=== PATIENT | female | born 1985 | race Caucasian/White ===

== ENCOUNTER 2016-07-25 16:48 | Emergency (ER) | payer MEDICAID ==
[2016-07-25] MEDS ORDERED: NS 1,000 ML IV ONE ×2 (16:55→18:38)
[2016-07-25] MEDS ORDERED: HYDROmorphONE/DILAUDID 1 MG/ML SYR IVP ONE ×2 (16:55→18:56)
[2016-07-25 17:04] VITALS: RESP 14; TEMP 98.4
[2016-07-25 17:12] LABS: % IMMATURE GRANULYOCYTES 0.2 % (0.0-1.1); ABSOLUTE IMMATURE GRANULOCYTES 0.01 10^3/uL (0.00-0.10); ADD DIFF? NO; ADD MORPH? NO; ADD SCAN? NO; ATYPICAL LYMPHOCYTE FLAG 10 (0-99); FRAGMENT RBC FLAG 0 (0-99); HEMATOCRIT 38.3 % (38.0-47.0); HEMOGLOBIN 13.3 g/dL (12.6-16.3); LEFT SHIFT FLG 0 (0-99); LIPEMIA HEMOLYSIS FLAG 90 (0-99); MEAN CELL HEMOGLOBIN 29.8 pg (27.9-34.1); MEAN CELL HEMOGLOBIN CONCENTR. 34.7 g/dL (32.4-36.7); MEAN CELL VOLUME 85.9 fL (81.5-99.8); MEAN PLATELET VOLUME 9.4 fL (8.7-11.7); PLATELET CLUMPS FLAG 0 (0-99); PLATELET COUNT 303 10^3/uL (150-400); RED BLOOD CELL COUNT 4.46 10^6/uL (4.18-5.33); RED CELL DISTRIBUTION WIDTH 11.9 % (11.5-15.2)
[2016-07-25 17:14] VITALS: O2SAT 96
[2016-07-25 17:40] LABS: ANION GAP 11 mEq/L (8-16); CALCIUM 9.6 mg/dL (8.5-10.4); CARBON DIOXIDE 20 mEq/l (22-31); CHLORIDE 105 mEq/L (97-110); CREATININE 1.1 mg/dL (0.6-1.0); GLOMERULAR FILTRATION RATE 58; GLUCOSE 81 mg/dL (70-100); SODIUM 136 mEq/L (134-144)
[2016-07-25] MEDS ORDERED: IOPAMIDOL (ISOVUE-300) 100 ML BTL ONE (17:46)
[2016-07-25] MEDS ORDERED: PROMETHAZINE HCL 25 MG/ML INJ ONE (18:24)
[2016-07-25] MEDS ORDERED: PROMETHAZINE HCL 25 MG/ML INJ IVP ONE (18:25)
--- NOTE | 2016-07-25 18:33 | EDPHY ---
H & P Stated Complaint: Flank Pain HPI/ROS: Chief complaint: Left flank pain History of present illness: This is a 31-year-old female who presents to the emergency department for left flank pain. Patient reports the onset of pain this evening. She describes persistent pain with nausea and vomiting. She denies precipitating factors. She denies alleviating factors. She denies other associated signs or symptoms including no fevers, no dysuria he, hematuria , frequency or urgency, no diarrhea or constipation. Patient does have a history of kidney stones and other urologic problems that she reports ultimately resulted in a right nephrectomy at the [facility] remotely. However she has not followed up with them recently. She is concerned this could be secondary to a kidney stone. However she also reports a history of ovarian cyst and is concerned this could be secondary to an ovarian cyst. Review of systems: A 10 point review of systems was obtained and other than described above was negative - Personal History Current Tetanus/Diphtheria Vaccine: Yes Current Tetanus Diphtheria and Acellular Pertussis (TDAP): Yes - Medical/Surgical History Hx Asthma: No Hx Chronic Respiratory Disease: No Hx Diabetes: No Hx Cardiac Disease: No Hx Renal Disease: Yes Hx Cirrhosis: No Hx Alcoholism: No Hx HIV/AIDS: No Hx Splenectomy or Spleen Trauma: No Other PMH: nephrectomy, ovarian cysts, ptsd, anxiety - Social History Smoking Status: Never smoked - Physical Exam Exam: General Appearance: Alert, nontoxic. Eyes: Pupils equal and round no pallor or injection. ENT, Mouth: Mucous membranes moist. Respiratory: There are no retractions, lungs are clear to auscultation. Cardiovascular: Regular rate and rhythm. Gastrointestinal: Abdomen is soft and nontender, no masses, bowel sounds normal. Genitourinary: No CVA tenderness Neurological: Alert and oriented. Strength and sensation intact and symmetrical. Skin: Warm and dry, no rashes. Musculoskeletal: Neck is supple nontender. Extremities are symmetrical, full range of motion. Psychiatric: Patient is oriented X 3, there is no agitation. Constitutional: Initial Vital Signs Temperature (C) 36.9 C 07/25/16 17:02 Heart Rate 72 07/25/16 17:02 Respiratory Rate 14 07/25/16 17:02 Blood Pressure 124/85 H 07/25/16 17:02 O2 Sat (%) 93 07/25/16 17:02 O2 Delivery Mode Room Air O2 (L/minute) 2 Allergies/Adverse Reactions: azithromycin Allergy (Verified 07/25/16 17:02) morphine Allergy (Verified 07/25/16 17:02) ondansetron Allergy (Verified 07/25/16 17:02) Home Medications: Medication Instructions Recorded Hydroxyzine HCl 07/25/16 Propranolol HCl 07/25/16 oxyCODONE IR 07/25/16 Medical Decision Making - Diagnostics Imaging Results: Imaging Impressions Abdomen/Pelvis CT 07/25/16 17:43 Impression: 1. Status post right nephrectomy. The remaining left kidney is normal in appearance by CT examination, without obstruction. 2. Mild cystic fullness of the left ovary. Results called to Valeriy Brooks PA-C. Attention: This CT examination is specifically designed to evaluate patients who are clinically suspected of having acute obstructive uropathy. This examination does not use radiographic contrast, and as such, provides only a limited evaluation of the abdomen, pelvis and retroperitoneum. If there is further clinical suspicion for pathological conditions other than obstructive uropathy, a complete CT evaluation of the abdomen and pelvis utilizing intravenous, oral, and rectal contrast should be considered. Pelvic/Renal Ultrasound 07/25/16 18:35 Impression: 1. No evidence of left ovarian torsion. 2. Left ovarian 2.2- x 2.1- x 1.9-cm simple cyst or dominant follicle. 3. Prior right oophorectomy and hysterectomy. 4. No significant free fluid. Findings and recommendations discussed with Emergency Department physician, JAIME Mccormick, at 1938 hours, on July 25, 2016. Final report concurs with initial preliminary interpretation. ED Course/Re-evaluation: Patient is discussed with my secondary supervising physician Dr. Maral Hernandez. Patient presents to the emergency department for left flank pain. On presentation she is nontoxic. Afebrile and vital signs are stable. Blood studies show only trace elevation of creatinine, it is not clear what her baseline is. She is IV hydrated. Urinalysis is unremarkable. CT scan is negative for urologic findings. Pelvic ultrasound does show an ovarian cyst without complications such as torsion. Patient has been treated with pain medicine and antiemetics with improvement in symptoms. I believe patient is safe for discharge home. She is on chronic narcotics at home, she will need to follow up with her primary care doctor tomorrow to discuss adjusting these as needed for current pain. Toradol and other NSAIDs are NOT given, given her history of mildly elevated creatinine and right nephrectomy. She is asked to follow up with Urology for continued evaluation and care given this history. She has further been referred to OBGYN for recheck of her ovarian cyst. Home care is discussed. Return precautions are given. Differential Diagnosis: Included but not limited to cystitis, pyelonephritis, nephrolithiasis, diverticulitis, ovarian cyst, ovarian torsion - Data Points Laboratory Results: Laboratory Results 07/25/16 17:00 07/25/16 17:00 07/25/16 07/25/16 07/25/16 20:10 17:00 17:00 WBC RBC Hgb Hct MCV MCH MCHC RDW Plt Count MPV Neut % (Auto) Lymph % (Auto) [place] % (Auto) Eos % (Auto) Baso % (Auto) Nucleat RBC Rel Count Absolute Neuts (auto) Absolute Lymphs (auto) Absolute Monos (auto) Absolute Eos (auto) Absolute Basos (auto) Absolute Nucleated RBC Immature Gran % Immature Gran # Sodium 136 mEq/L mEq/L (134-144) Potassium 4.0 mEq/L mEq/L (3.5-5.2) Chloride 105 mEq/L mEq/L (97-110) Carbon Dioxide 20 mEq/l L mEq/l (22-31) Anion Gap 11 mEq/L mEq/L (8-16) BUN 14 mg/dL mg/dL (7-23) Creatinine 1.1 mg/dL H mg/dL (0.6-1.0) Estimated GFR 58 Glucose 81 mg/dL mg/dL (70-100) Calcium 9.6 mg/dL mg/dL (8.5-10.4) Beta HCG, Qual NEGATIVE Urine Color YELLOW Urine Appearance HAZY Urine pH 5.0 (5.0-7.5) Ur Specific [place] 1.013 (1.002-1.030) Urine Protein NEGATIVE (NEGATIVE) Urine Ketones NEGATIVE (NEGATIVE) Urine Blood NEGATIVE (NEGATIVE) Urine Nitrate NEGATIVE (NEGATIVE) Urine Bilirubin NEGATIVE (NEGATIVE) Urine Urobilinogen NEGATIVE EU EU (0.2-1.0) Ur Leukocyte Esterase NEGATIVE (NEGATIVE) Urine Glucose NEGATIVE (NEGATIVE) 07/25/16 17:00 WBC 5.32 10^3/uL 10^3/uL (3.80-9.50) RBC 4.46 10^6/uL 10^6/uL (4.18-5.33) Hgb 13.3 g/dL g/dL (12.6-16.3) Hct 38.3 % % (38.0-47.0) MCV 85.9 fL fL (81.5-99.8) MCH 29.8 pg pg (27.9-34.1) MCHC 34.7 g/dL g/dL (32.4-36.7) RDW 11.9 % % (11.5-15.2) Plt Count 303 10^3/uL 10^3/uL (150-400) MPV 9.4 fL fL (8.7-11.7) Neut % (Auto) 40.4 % % (39.3-74.2) Lymph % (Auto) 48.1 % H % (15.0-45.0) [place] % (Auto) 9.2 % % (4.5-13.0) Eos % (Auto) 1.3 % % (0.6-7.6) Baso % (Auto) 0.8 % % (0.3-1.7) Nucleat RBC Rel Count 0.0 % % (0.0-0.2) Absolute Neuts (auto) 2.15 10^3/uL 10^3/uL (1.70-6.50) Absolute Lymphs (auto) 2.56 10^3/uL 10^3/uL (1.00-3.00) Absolute Monos (auto) 0.49 10^3/uL 10^3/uL (0.30-0.80) Absolute Eos (auto) 0.07 10^3/uL 10^3/uL (0.03-0.40) Absolute Basos (auto) 0.04 10^3/uL 10^3/uL (0.02-0.10) Absolute Nucleated RBC 0.00 10^3/uL 10^3/uL (0-0.01) Immature Gran % 0.2 % % (0.0-1.1) Immature Gran # 0.01 10^3/uL 10^3/uL (0.00-0.10) Sodium Potassium Chloride Carbon Dioxide Anion Gap BUN Creatinine Estimated GFR Glucose Calcium Beta HCG, Qual Urine Color Urine Appearance Urine pH Ur Specific [place] Urine Protein Urine Ketones Urine Blood Urine Nitrate Urine Bilirubin Urine Urobilinogen Ur Leukocyte Esterase Urine Glucose Medications Given: Discontinued Medications Diphenhydramine HCl (Benadryl Injection) 25 mg IVP EDNOW ONE Stop: 07/25/16 20:11 Last Admin: 07/25/16 20:22 Dose: 25 mg Hydromorphone HCl (Dilaudid) 0.5 mg IVP EDNOW ONE Stop: 07/25/16 16:56 Last Admin: 07/25/16 17:12 Dose: 0.5 mg Hydromorphone HCl (Dilaudid) 0.5 mg IVP EDNOW ONE Stop: 07/25/16 18:57 Last Admin: 07/25/16 19:04 Dose: 0.5 mg Sodium Chloride (Ns) 1,000 mls @ 0 mls/hr IV ONCE ONE; Wide Open PRN Reason: Protocol Stop: 07/25/16 16:56 Last Admin: 07/25/16 17:12 Dose: 1,000 mls Sodium Chloride (Ns) 1,000 mls @ 0 mls/hr IV ONCE ONE; Wide Open PRN Reason: Protocol Stop: 07/25/16 18:39 Last Admin: 07/25/16 18:39 Dose: 1,000 mls Promethazine HCl (Phenergan) 12.5 mg IVP ONCE ONE Stop: 07/25/16 18:26 Last Admin: 07/25/16 18:28 Dose: 12.5 mg Promethazine HCl (Phenergan 25 Mg Prepack #4) 1 btl TAKEHOME EDNOW ONE Stop: 07/25/16 20:56 Last Admin: 07/25/16 21:00 Dose: 1 btl Departure - Departure Disposition: Home, Routine, Self-Care Clinical Impression: Ovarian cyst Condition: Good Instructions: Ovarian Cyst (ED) Additional Instructions: Please establish care with a primary care doctor as well as urologist an OBGYN, referral information is attached to this information packet Please have your creatinine recheck it was 1.1, mildly elevated today Drink plenty of fluids to stay hydrated If symptoms worsen or new symptoms develop return to the emergency room for recheck Referrals: Nita Blunt NP [Primary Care Provider] - As per Instructions Ned Steele MD [Unknown] - As per Instructions Wilfrido Catalan MD [Medical Doctor] - As per Instructions [facility],. [Clinic] - As per Instructions Stand Alone Forms: Work Excuse
[2016-07-25 20:24] LABS: COLOR YELLOW; LEUKOCYTE ESTERASE,URINE NEGATIVE (NEGATIVE); NITRITE,URINE NEGATIVE (NEGATIVE)
[2016-07-25 20:55] VITALS: BP 141/78; PULSE 80
[2016-07-25] MEDS ORDERED: PROMETHAZINE 25 MG PREPACK #4 BTL TAKEHOME ONE (20:55)
== END 2016-07-25 21:01 | disposition home or self-care (01) ==
LOC: EDUNIT#
DX: N83.202 Unspecified ovarian cyst, left side (principal)
CPT/HCPCS: J1170; J1200; J2550; Q9967

== ENCOUNTER 2016-07-27 12:49 | Inpatient (IN) | payer MEDICAID ==
[2016-07-27] MEDS ORDERED: NS 1,000 ML IV ONE ×3 (13:08→14:50)
[2016-07-27 13:19] LABS: COLOR YELLOW; LEUKOCYTE ESTERASE,URINE NEGATIVE (NEGATIVE); NITRITE,URINE NEGATIVE (NEGATIVE)
[2016-07-27] MEDS ORDERED: METOCLOPRAMIDE 10 MG/2 ML VIAL IVP ONE ×2 (13:23→15:56)
[2016-07-27 13:32] LABS: % IMMATURE GRANULYOCYTES 0.3 % (0.0-1.1); ABSOLUTE IMMATURE GRANULOCYTES 0.03 10^3/uL (0.00-0.10); ADD DIFF? NO; ADD MORPH? NO; ADD SCAN? NO; ATYPICAL LYMPHOCYTE FLAG 20 (0-99); FRAGMENT RBC FLAG 0 (0-99); HEMATOCRIT 43.9 % (38.0-47.0); HEMOGLOBIN 15.1 g/dL (12.6-16.3); LEFT SHIFT FLG 0 (0-99); LIPEMIA HEMOLYSIS FLAG 90 (0-99); MEAN CELL HEMOGLOBIN 29.9 pg (27.9-34.1); MEAN CELL HEMOGLOBIN CONCENTR. 34.4 g/dL (32.4-36.7); MEAN CELL VOLUME 86.9 fL (81.5-99.8); MEAN PLATELET VOLUME 9.8 fL (8.7-11.7); PLATELET CLUMPS FLAG 0 (0-99); PLATELET COUNT 383 10^3/uL (150-400); RED BLOOD CELL COUNT 5.05 10^6/uL (4.18-5.33); RED CELL DISTRIBUTION WIDTH 11.9 % (11.5-15.2)
[2016-07-27] MEDS ORDERED: HYDROmorphONE/DILAUDID 1 MG/ML SYR IVP ONE ×2 (13:38→14:50)
--- NOTE | 2016-07-27 13:38 | EDPHY ---
H & P Time Seen by Provider: 07/27/16 12:53 HPI/ROS: Chief complaint. Abdominal pain, vomiting HPI. 31-year-old female with vomiting and diarrhea Ak[place] for 1 week. Left side abdominal pain. She was seen 2 days ago in our emergency department for same symptoms. She says the pain is in the same location and of the same character but just worse. She has had vomiting and diarrhea. She is using Phenergan as an antiemetic as she is allergic to Zofran. She still can't keep fluids down. Fever to 99.9 degrees. No recent travel or bad food exposure though she questionably 8 a portable a mushroom sandwich 2 weeks ago that she thinks could have been suspect. No exposure to Infectious Disease. On July 25 she had a pelvic and renal ultrasound which showed a 2 cm left ovarian cyst. CT of abdomen showed a right nephrectomy, right oophorectomy and hysterectomy. ROS Constitutional. no fever/chills, no weakness Eyes. no problems with vision ENT. no sore throat, no nasal drainage Cardiovascular. no chest pain Respiratory. no shortness of breath, no cough Abdominal. Left side abdominal pain with vomiting and diarrhea . no problems urinating MS. no calf pain/swelling, no neck/back pain, no joint pain Skin. no rash Lymph. no swollen glands Neuro. no headache, no dizziness, no difficulty walking or with speech Past Medical/Surgical History: Endometriosis with oophorectomy and hysterectomy. Anxiety and PTSD. History of ovarian cysts. She has had a right nephrectomy and kidney stones Social History: Single, nonsmoker, no alcohol Smoking Status: Never smoked Physical Exam: General Appearance: Alert well-developed female moderate distress vital signs are stable Eyes: Pupils equal and round no pallor or injection. ENT, Mouth: Mucous membranes are dry. Respiratory: There are no retractions, lungs are clear to auscultation. Cardiovascular: Regular rate and rhythm. Gastrointestinal: Abdomen is soft with tenderness in the left upper quadrant. No masses. Normal bowel sounds Neurological: Awake and alert, sensory and motor exams grossly normal. Skin: Warm and dry, no rashes. Musculoskeletal: Neck is supple nontender. Extremities symmetrical, full range of motion. Psychiatric: Patient is oriented X 3, there is no agitation. Constitutional: Initial Vital Signs Temperature (C) 36.8 C 07/27/16 12:57 Heart Rate 86 07/27/16 12:57 Respiratory Rate 18 07/27/16 12:57 Blood Pressure 109/78 07/27/16 12:57 O2 Sat (%) 92 07/27/16 12:57 O2 Delivery Mode Room Air Allergies/Adverse Reactions: azithromycin Allergy (Verified 07/25/16 17:02) morphine Allergy (Verified 07/25/16 17:02) ondansetron Allergy (Verified 07/25/16 17:02) Home Medications: Medication Instructions Recorded Hydroxyzine HCl 07/25/16 Propranolol HCl 07/25/16 oxyCODONE IR 07/25/16 Medical Decision Making - Diagnostics Imaging Results: Imaging Impressions Pelvic/Renal Ultrasound 07/27/16 14:18 Impression: Normal ultrasound appearance of the left ovary with no visible etiology for patient's pain. Findings discussed with MATTHEW CORREA 07/27/2016 at 16:06. Ultrasound shows resolution of left ovarian cyst. Procedures: IV normal saline with initial target of 2 L. Reglan, Benadryl, Dilaudid for vomiting and pain control ED Course/Re-evaluation: Re-evaluation 2:45 p.m.. Patient is stable and improved. She feels her nausea and pain are coming back. She will be remained EKG did with Dilaudid and Phenergan. She will receive further IV fluids 3:30 p.m. ultrasound being performed We will repeat labs after the patient is received 3 L of IV fluid 4:00 p.m.. Repeat Reglan Benadryl IV. We will then begin oral challenge Repeat chemistries are improved. Re-evaluation 4:25 p.m. patient is taking ice chips without vomiting. She and I have discussed imaging and lab results. We have discussed treatment plan including criteria for return and importance of follow-up and further evaluation. Patient has her regular physician in [place] Re-evaluation 5:00 p.m.. No vomiting but she is quite nauseated after ice chips. She asks for further pain medication which I declined to give her. She and I agreed on admission. She understands she will be treated with medication for nausea and fluids but not pain medication as there is no source of pain identified. I consulted and discussed case with Dr. Nuñez, hospitalist, who agrees to the admission Differential Diagnosis: This appears to be a cyclic vomiting type syndrome. Workup is really quite normal. She was certainly dehydrated with an elevated creatinine. After 3 L in rechecking her creatinine is back to her baseline. She however has had a nephrectomy and does run a chronically slightly elevated creatinine. Her ovarian cyst that was identified 2 days ago has resolved. I also considered urinary tract infection and kidney stone however her urine is normal. She had a normal CT scan 2 days ago. - Data Points Laboratory Results: Laboratory Results 07/27/16 15:49 07/27/16 15:49 07/27/16 07/27/16 07/27/16 15:49 15:49 13:04 WBC 7.64 10^3/uL 10^3/uL (3.80-9.50) RBC 4.11 10^6/uL L 10^6/uL (4.18-5.33) Hgb 12.4 g/dL L g/dL (12.6-16.3) Hct 35.9 % L % (38.0-47.0) MCV 87.3 fL fL (81.5-99.8) MCH 30.2 pg pg (27.9-34.1) MCHC 34.5 g/dL g/dL (32.4-36.7) RDW 11.9 % % (11.5-15.2) Plt Count 252 10^3/uL D 10^3/uL (150-400) MPV 9.1 fL fL (8.7-11.7) Neut % (Auto) 69.9 % % (39.3-74.2) Lymph % (Auto) 22.9 % % (15.0-45.0) [place] % (Auto) 6.2 % % (4.5-13.0) Eos % (Auto) 0.1 % L % (0.6-7.6) Baso % (Auto) 0.5 % % (0.3-1.7) Nucleat RBC Rel Count 0.0 % % (0.0-0.2) Absolute Neuts (auto) 5.34 10^3/uL 10^3/uL (1.70-6.50) Absolute Lymphs (auto) 1.75 10^3/uL 10^3/uL (1.00-3.00) Absolute Monos (auto) 0.47 10^3/uL 10^3/uL (0.30-0.80) Absolute Eos (auto) 0.01 10^3/uL L 10^3/uL (0.03-0.40) Absolute Basos (auto) 0.04 10^3/uL 10^3/uL (0.02-0.10) Absolute Nucleated RBC 0.00 10^3/uL 10^3/uL (0-0.01) Immature Gran % 0.4 % % (0.0-1.1) Immature Gran # 0.03 10^3/uL 10^3/uL (0.00-0.10) Sodium 140 mEq/L mEq/L (134-144) Potassium 3.7 mEq/L mEq/L (3.5-5.2) Chloride 110 mEq/L mEq/L (97-110) Carbon Dioxide 19 mEq/l L mEq/l (22-31) Anion Gap 11 mEq/L mEq/L (8-16) BUN 12 mg/dL mg/dL (7-23) Creatinine 1.1 mg/dL H mg/dL (0.6-1.0) Estimated GFR 58 Glucose 81 mg/dL mg/dL (70-100) Calcium 8.5 mg/dL D mg/dL (8.5-10.4) Total Bilirubin Conjugated Bilirubin Unconjugated Bilirubin AST ALT Alkaline Phosphatase Total Protein Albumin Lipase Beta HCG, Qual Urine Color YELLOW Urine Appearance HAZY Urine pH 5.0 (5.0-7.5) Ur Specific [place] 1.029 (1.002-1.030) Urine Protein NEGATIVE (NEGATIVE) Urine Ketones TRACE H (NEGATIVE) Urine Blood NEGATIVE (NEGATIVE) Urine Nitrate NEGATIVE (NEGATIVE) Urine Bilirubin NEGATIVE (NEGATIVE) Urine Urobilinogen NEGATIVE EU EU (0.2-1.0) Ur Leukocyte Esterase NEGATIVE (NEGATIVE) Ur Culture Indicated? NOT INDICATED (NI) Urine Glucose NEGATIVE (NEGATIVE) 07/27/16 07/27/16 07/27/16 12:40 12:40 12:40 WBC 9.94 10^3/uL H 10^3/uL (3.80-9.50) RBC 5.05 10^6/uL 10^6/uL (4.18-5.33) Hgb 15.1 g/dL g/dL (12.6-16.3) Hct 43.9 % % (38.0-47.0) MCV 86.9 fL fL (81.5-99.8) MCH 29.9 pg pg (27.9-34.1) MCHC 34.4 g/dL g/dL (32.4-36.7) RDW 11.9 % % (11.5-15.2) Plt Count 383 10^3/uL D 10^3/uL (150-400) MPV 9.8 fL fL (8.7-11.7) Neut % (Auto) 50.9 % % (39.3-74.2) Lymph % (Auto) 39.9 % % (15.0-45.0) [place] % (Auto) 7.9 % % (4.5-13.0) Eos % (Auto) 0.5 % L % (0.6-7.6) Baso % (Auto) 0.5 % % (0.3-1.7) Nucleat RBC Rel Count 0.0 % % (0.0-0.2) Absolute Neuts (auto) 5.05 10^3/uL 10^3/uL (1.70-6.50) Absolute Lymphs (auto) 3.97 10^3/uL H 10^3/uL (1.00-3.00) Absolute Monos (auto) 0.79 10^3/uL 10^3/uL (0.30-0.80) Absolute Eos (auto) 0.05 10^3/uL 10^3/uL (0.03-0.40) Absolute Basos (auto) 0.05 10^3/uL 10^3/uL (0.02-0.10) Absolute Nucleated RBC 0.00 10^3/uL 10^3/uL (0-0.01) Immature Gran % 0.3 % % (0.0-1.1) Immature Gran # 0.03 10^3/uL 10^3/uL (0.00-0.10) Sodium 143 mEq/L mEq/L (134-144) Potassium 3.9 mEq/L mEq/L (3.5-5.2) Chloride 105 mEq/L mEq/L (97-110) Carbon Dioxide 19 mEq/l L mEq/l (22-31) Anion Gap 19 mEq/L H mEq/L (8-16) BUN 14 mg/dL mg/dL (7-23) Creatinine 1.3 mg/dL H mg/dL (0.6-1.0) Estimated GFR 48 Glucose 101 mg/dL H mg/dL (70-100) Calcium 10.3 mg/dL mg/dL (8.5-10.4) Total Bilirubin 1.4 mg/dL mg/dL (0.1-1.4) Conjugated Bilirubin 0.5 mg/dL mg/dL (0.0-0.5) Unconjugated Bilirubin 0.9 mg/dL mg/dL (0.0-1.1) AST 25 IU/L IU/L (14-46) ALT 28 IU/L IU/L (9-52) Alkaline Phosphatase 49 IU/L IU/L (38-126) Total Protein 8.5 g/dL H g/dL (6.3-8.2) Albumin 5.1 g/dL H g/dL (3.5-5.0) Lipase 92.0 IU/L IU/L (23-300) Beta HCG, Qual NEGATIVE Urine Color Urine Appearance Urine pH Ur Specific [place] Urine Protein Urine Ketones Urine Blood Urine Nitrate Urine Bilirubin Urine Urobilinogen Ur Leukocyte Esterase Ur Culture Indicated? Urine Glucose Medications Given: Discontinued Medications Diphenhydramine HCl (Benadryl Injection) 12.5 mg IVP EDNOW ONE Stop: 07/27/16 13:24 Last Admin: 07/27/16 13:44 Dose: 12.5 mg Diphenhydramine HCl (Benadryl Injection) 12.5 mg IVP EDNOW ONE Stop: 07/27/16 15:57 Last Admin: 07/27/16 16:22 Dose: 12.5 mg Hydromorphone HCl (Dilaudid) 1 mg IVP EDNOW ONE Stop: 07/27/16 13:39 Last Admin: 07/27/16 13:49 Dose: 1 mg Hydromorphone HCl (Dilaudid) 0.5 mg IVP EDNOW ONE Stop: 07/27/16 14:51 Last Admin: 07/27/16 15:05 Dose: 0.5 mg Sodium Chloride (Ns) 1,000 mls @ 0 mls/hr IV EDNOW ONE; Wide Open PRN Reason: Protocol Stop: 07/27/16 13:09 Last Admin: 07/27/16 13:12 Dose: 1,000 mls Sodium Chloride (Ns) 1,000 mls @ 0 mls/hr IV ONCE ONE; Wide Open PRN Reason: Protocol Stop: 07/27/16 13:24 Last Admin: 07/27/16 13:49 Dose: 1,000 mls Sodium Chloride (Ns) 1,000 mls @ 0 mls/hr IV ONCE ONE; Wide Open PRN Reason: Protocol Stop: 07/27/16 14:51 Last Admin: 07/27/16 15:05 Dose: 1,000 mls Metoclopramide HCl (Reglan Injection) 10 mg IVP EDNOW ONE Stop: 07/27/16 13:24 Last Admin: 07/27/16 13:44 Dose: 10 mg Metoclopramide HCl (Reglan Injection) 5 mg IVP EDNOW ONE Stop: 07/27/16 15:57 Last Admin: 07/27/16 16:22 Dose: 5 mg Promethazine HCl (Phenergan) 12.5 mg IVP EDNOW ONE Stop: 07/27/16 14:51 Last Admin: 07/27/16 15:05 Dose: 12.5 mg Departure - Departure Disposition: [facility] Inpatient Acute Clinical Impression: Abdominal pain Qualifiers: Abdominal location: left upper quadrant Qualified Code(s): R10.12 - Left upper quadrant pain Vomiting Qualifiers: Vomiting type: cyclical vomiting Vomiting Intractability: non-intractable Nausea presence: with nausea Qualified Code(s): G43.A0 - Cyclical vomiting, not intractable Condition: Fair Referrals: Patient,NotPresent [Unknown] - As per Instructions
[2016-07-27 13:39] LABS: ALANINE AMINOTRANSFERASE 28 IU/L (9-52); ALBUMIN 5.1 g/dL (3.5-5.0); ALKALINE PHOSPHATASE 49 IU/L (38-126); ANION GAP 19 mEq/L (8-16); ASPARTATE AMINOTRANSFERASE 25 IU/L (14-46); BILIRUBIN,TOTAL 1.4 mg/dL (0.1-1.4); BILIRUBIN-CONJUGATED 0.5 mg/dL (0.0-0.5); BILIRUBIN-UNCONJUGATED 0.9 mg/dL (0.0-1.1); CALCIUM 10.3 mg/dL (8.5-10.4); CARBON DIOXIDE 19 mEq/l (22-31); CHLORIDE 105 mEq/L (97-110); CREATININE 1.3 mg/dL (0.6-1.0); GLOMERULAR FILTRATION RATE 48; GLUCOSE 101 mg/dL (70-100); POTASSIUM 3.9 mEq/L (3.5-5.2); SODIUM 143 mEq/L (134-144); TOTAL PROTEIN 8.5 g/dL (6.3-8.2)
[2016-07-27] MEDS ORDERED: PROMETHAZINE HCL 25 MG/ML INJ IVP ONE (14:50)
[2016-07-27 15:55] LABS: % IMMATURE GRANULYOCYTES 0.4 % (0.0-1.1); ABSOLUTE IMMATURE GRANULOCYTES 0.03 10^3/uL (0.00-0.10); ADD DIFF? NO; ADD MORPH? NO; ADD SCAN? NO; ATYPICAL LYMPHOCYTE FLAG 0 (0-99); FRAGMENT RBC FLAG 0 (0-99); HEMATOCRIT 35.9 % (38.0-47.0); HEMOGLOBIN 12.4 g/dL (12.6-16.3); LEFT SHIFT FLG 0 (0-99); LIPEMIA HEMOLYSIS FLAG 90 (0-99); MEAN CELL HEMOGLOBIN 30.2 pg (27.9-34.1); MEAN CELL HEMOGLOBIN CONCENTR. 34.5 g/dL (32.4-36.7); MEAN CELL VOLUME 87.3 fL (81.5-99.8); MEAN PLATELET VOLUME 9.1 fL (8.7-11.7); PLATELET CLUMPS FLAG 0 (0-99); PLATELET COUNT 252 10^3/uL (150-400); RED BLOOD CELL COUNT 4.11 10^6/uL (4.18-5.33); RED CELL DISTRIBUTION WIDTH 11.9 % (11.5-15.2)
[2016-07-27 16:15] LABS: ANION GAP 11 mEq/L (8-16); CALCIUM 8.5 mg/dL (8.5-10.4); CARBON DIOXIDE 19 mEq/l (22-31); CHLORIDE 110 mEq/L (97-110); CREATININE 1.1 mg/dL (0.6-1.0); GLOMERULAR FILTRATION RATE 58; GLUCOSE 81 mg/dL (70-100); POTASSIUM 3.7 mEq/L (3.5-5.2); SODIUM 140 mEq/L (134-144)
[2016-07-27] MEDS ORDERED: IBUPROFEN 200 MG TAB PO PRN ×2 (19:29→19:30)
[2016-07-27] MEDS: NS 1,000 ML IV SCH (19:52)
[2016-07-27] MEDS: ESCITALOPRAM OXALATE 10 MG TAB PO SCH (20:12)
[2016-07-27] MEDS: hydrOXYzine HCL 25 MG TAB PO SCH (20:15)
[2016-07-27] MEDS: PROMETHAZINE HCL 25 MG/ML INJ IVP PRN (20:15)
[2016-07-27] MEDS: PROPRANOLOL HCL 10 MG TAB PO SCH (20:37)
[2016-07-27] MEDS ORDERED: NON-FORMULARY NEW DRUG (Escitalopram Oxalate [Lexapro] 20 MG) PO SCH (21:00)
--- NOTE | 2016-07-27 22:05 | GHP ---
[f rep st] HISTORY AND PHYSICAL DATE OF ADMISSION: 07/27/2016 CHIEF COMPLAINT: Abdominal pain. HISTORY: This is a 31-year-old female, who has a past medical history that includes PTSD and anxiet y, as well as chronic pain, with continuous opiate use and dependency, presenting with several days of acute left-sided abdominal pain. She was seen in the ER initially 07/25 for similar symptoms, at which time an abdominal CT and abdominal ultrasound were performed, which were remarkable for a lef t-sided ovarian cyst, but otherwise unremarkable. She returns today with similar symptoms, although , at this point, she is sort of pointing higher up in her abdomen, and she states that the pain has also gotten more severe. On repeat evaluation in the ER today, a repeat abdominal ultrasound showed a resolution of that left-sided ovarian cyst. She did receive 1.5 mg of Dilaudid in the emergency department, and multiple medications for nausea and vomiting, and continues to request increased dos es of preferably Benadryl and Reglan. She is tolerating food, though she states the pain is still p resent, and still in a similar quality. She notes she has had similar bouts of pain in the past gurmeet t previously were either related to ovarian cysts or kidney stones, and she has had a right-sided ne phrectomy for what sounds like recurrent kidney stones multiple years ago. PAST MEDICAL HISTORY: Includes: 1. Recurrent ovarian cysts, with severe chronic recurrent pain. 2. Endometriosis. 3. Recurrent nephrolithiasis. 4. PTSD. 5. Anxiety. PAST SURGICAL HISTORY: Includes: 1. Nephrectomy. 2. Oophorectomy. 3. Hysterectomy. 4. Tonsillectomy. 5. Cholecystectomy. FAMILY HISTORY: Reviewed and unremarkable. SOCIAL HISTORY: Patient is a nonsmoker. She denies significant alcohol use and drug use. She is s don. REVIEW OF SYSTEMS: Ten-point review of systems obtained, negative except as per HPI. HOME MEDICATIONS: Include: 1. Trazodone 300 mg. 2. Zanaflex 8 mg at bedtime. 3. Oxycodone 10 mg q.8. 4. Hydroxyzine 50 mg at bedtime. 5. Propranolol 10 mg at bedtime. 6. Ibuprofen 600 mg q.8 hours p.r.n. 7. Lexapro. 8. Valium 10 twice a day. 9. Xanax 1 twice a day. ALLERGIES: Include azithromycin, morphine, and Zofran. PHYSICAL EXAM: VITAL SIGNS: BP 116/80, heart rate 63, respiratory rate 16, O2 saturations 96% on r oom air, temperature is 37. GENERAL APPEARANCE: This patient is awake and alert. She is in no acu te distress. She is quite calm. EYES: Anicteric. HENT: Oropharynx clear. CARDIOVASCULAR: Regu lar rate and rhythm. No murmurs, rubs, or gallops. PULMONARY: CTA bilaterally. Normal work of br eathing. ABDOMEN: Belly is soft. Bowel sounds are present and normal. She does have tenderness t o palpation on the left flank and left middle quadrant, without rebound or guarding. EXTREMITIES: No clubbing, cyanosis, or edema. SKIN: Warm, dry, well perfused. NEURO/PSYCH: Oriented and appro priate. CLINICAL DATA: Labs reviewed. White blood cell count is 7.6, hematocrit 35.9, platelets of 252. C hemistry notable for a creatinine of 1.1, which appears to be stable from 2 days ago. Urinalysis sh ows trace ketones. Abdomen and pelvic CT from 2 days ago, personally reviewed and interpreted, shows a surgically absen t right kidney, a surgically absent uterus, and other mild cystic fullness of the left ovary. Pelvic and renal ultrasound performed 07/25/2016 showed left ovarian 2.2 x 2.1 x 1.9 cm simple cyst versus dominant follicle, that on repeat ultrasound on 07/27/2016 is no longer present. ASSESSMENT AND PLAN: This is a 31-year-old female, with chronic pain, continuous opiate use and dep endency, and anxiety, who presents with left-sided abdominal pain, possibly related to ruptured ovar bettina cyst. 1. Left-sided abdominal pain. Somewhat difficult history, as on my evaluation, patient is reportin g sort of a much higher up kind of subdiaphragmatic pain versus a left lower quadrant pain is report ed in the emergency room. Abdominal ultrasound is normal, other than absence of possible cyst that was present 2 days ago, so, certainly, a ruptured cyst is one possible etiology, though there is no mention of free fluid in the pelvis. Another consideration, though less likely, would be for a pulm onary embolism, given some pleuritic component to the pain, and the location being more subdiaphragm atic. We will obtain a D-dimer. We will continue to manage her pain as much as possible with her h ome pain medications, which include oxycodone every 8 hours, Zanaflex, and Tylenol. We will try to avoid IV opiates as much as possible. 2. Ovarian cyst. Again, patient has had issues with recurrent ovarian cysts, and she had evidence of one 2 days ago that is now gone. No further workup is indicated. 3. Acute kidney injury. Mild bump in creatinine suspected from her usual baseline, although it has been elevated for the last 2 days. We will provide IV fluids overnight, and recheck a BMP in the m orning. We will hold her ibuprofen for now. 4. Anxiety/posttraumatic stress disorder. We will continue her home medications, which include chr onic benzodiazepines, including Xanax and diazepam. She is behaviorally controlled at this point. 5. Nausea, vomiting. We will continue Reglan, Benadryl, and Phenergan as needed. She does state t hat Reglan and Benadryl together seem to work the best. However, concern for all of her sedating me dications, but at the time of my evaluation, she is quite alert, and discussed with nursing and with patient the need to space sedating medications out to avoid any kind of related somnolence. 6. Observation status. Suspect patient will need less than a 48-hour stay for evaluation and manag ement of above. 7. Patient is new to my care. Old records reviewed, and summarized as per HPI and Past Medical His tory. The patient was also searched for the [facility] web site, and was confirmed that she obtains her m edications from her usual doctors only, and nothing concerning found on that research. /[id number]/MODL
[2016-07-28] MEDS: oxyCODONE IR 5 MG TAB PO PRN ×3 (03:35→20:25)
[2016-07-28] MEDS: diphenhydrAMINE 25 MG CAP PO PRN ×2 (03:36→21:56)
[2016-07-28 05:16] LABS: % IMMATURE GRANULYOCYTES 0.2 % (0.0-1.1); ABSOLUTE IMMATURE GRANULOCYTES 0.01 10^3/uL (0.00-0.10); ADD DIFF? NO; ADD MORPH? NO; ADD SCAN? NO; ATYPICAL LYMPHOCYTE FLAG 0 (0-99); FRAGMENT RBC FLAG 0 (0-99); HEMATOCRIT 31.9 % (38.0-47.0); LEFT SHIFT FLG 0 (0-99); LIPEMIA HEMOLYSIS FLAG 90 (0-99); MEAN CELL HEMOGLOBIN 30.4 pg (27.9-34.1); MEAN CELL HEMOGLOBIN CONCENTR. 34.5 g/dL (32.4-36.7); MEAN CELL VOLUME 88.1 fL (81.5-99.8); MEAN PLATELET VOLUME 9.5 fL (8.7-11.7); PLATELET CLUMPS FLAG 20 (0-99); PLATELET COUNT 205 10^3/uL (150-400); RED BLOOD CELL COUNT 3.62 10^6/uL (4.18-5.33); RED CELL DISTRIBUTION WIDTH 11.9 % (11.5-15.2)
[2016-07-28 05:29] LABS: ANION GAP 7 mEq/L (8-16); CALCIUM 8.3 mg/dL (8.5-10.4); CARBON DIOXIDE 19 mEq/l (22-31); CHLORIDE 112 mEq/L (97-110); CREATININE 0.9 mg/dL (0.6-1.0); GLOMERULAR FILTRATION RATE > 60; GLUCOSE 76 mg/dL (70-100); POTASSIUM 3.6 mEq/L (3.5-5.2); SODIUM 138 mEq/L (134-144)
[2016-07-28] MEDS ORDERED: DIAZEPAM 10 MG TAB PO SCH (07:00)
[2016-07-28] MEDS: PROMETHAZINE HCL 25 MG/ML INJ IVP PRN ×3 (08:35→21:56)
[2016-07-28] MEDS: DIAZEPAM 5 MG TAB PO SCH ×2 (08:36→13:40)
[2016-07-28] MEDS ORDERED: ENOXAPARIN 40 MG/0.4 ML SYR SC SCH (09:00)
--- NOTE | 2016-07-28 10:11 | HOSPPROG ---
Hospitalist Progress Note Assessment/Plan: Patient is a 31-year-old female who presented to the emergency room with several days of acute left-sided abdominal pain. She was initially seen in the emergency room on July 25 for similar symptoms. At that time an abdominal CT and abdominal ultrasound were performed which were all unremarkable x for left sided ovarian cyst. Today is my 1st encounter with the patient. Chart reviewed. * left-sided abdominal pain Abdominal ultrasound shows no etiology Per previous provider had pleuritic type pain. Has an elevated D-dimer also, c/o pleuritic type pain and pain with inspiration will get a CTA to r/o any PE, check lipase and h pylori had a CT of abd recently without contrast/ nothing acute noted * chronic pain with continuous opiate use and dependency Home medications resumed by the previous provider on 07/15 got a 30 day supply of oxy and on 07/22 got a 30 day supply for Alpraz and diazepam * history of ovarian cyst * acute kidney injury better/ has a hx of nephrectomy will hydrate well prior to CTA explained to patient risks and benefits of this procedure * anxiety/posttraumatic stress disorder has 3 daughters, , 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 Reviewed her care with Dr Corcoran. Subjective: Precious said her pain is in the lUQ abdominal area/ has been ongoing x 3 days/ says she is unable to eat and drink without having ongoing nausea and vomiting. Objective: Vital Signs Temp Pulse Resp BP Pulse Ox 36.8 C 60 18 113/73 94 07/28/16 08:09 07/28/16 08:09 07/28/16 08:09 07/28/16 08:09 07/28/16 08:09 Laboratory Results 07/28/16 04:46 07/28/16 04:46 07/27/16 07/28/16 07/29/16 05:59 05:59 05:59 Intake Total 4050 Balance 4050 - Physical Exam Constitutional: uncomfortable Eyes: PERRL Ears, Nose, Mouth, Throat: hearing normal Cardiovascular: regular rate and rhythym Respiratory: no respiratory distress Gastrointestinal: normoactive bowel sounds, soft, non-tender abdomen, No guarding, No rebound, No distension Skin: warm Musculoskeletal: no muscle tenderness Neurologic: AAOx3 Psychiatric: interacting appropriately, not anxious ICD10 Worksheet Patient Problems: Problems Problem Status Onset Abdominal pain Acute Vomiting Acute
[2016-07-28] MEDS: ALPRAZolam 1 MG TAB PO SCH ×2 (10:45→16:54)
[2016-07-28] MEDS ORDERED: IOPAMIDOL (ISOVUE 370) 100 ML BTL IV ONE (11:06)
[2016-07-28] MEDS: METOCLOPRAMIDE 10 MG/2 ML VIAL IVP PRN (12:15)
[2016-07-28] MEDS: ENOXAPARIN 80 MG/0.8 ML SYR SC SCH ×2 (13:40→20:27)
[2016-07-28] MEDS: NS 1,000 ML IV SCH (15:36)
[2016-07-28] MEDS: WARFARIN SODIUM 5 MG TAB PO SCH (16:54)
[2016-07-28] MEDS: ACETAMINOPHEN 325 MG TAB PO PRN (16:54)
[2016-07-28] MEDS: ESCITALOPRAM OXALATE 10 MG TAB PO SCH (20:24)
[2016-07-28] MEDS: PROPRANOLOL HCL 10 MG TAB PO SCH (20:26)
[2016-07-28] MEDS: hydrOXYzine HCL 25 MG TAB PO SCH (20:26)
[2016-07-29] MEDS: PROMETHAZINE HCL 25 MG/ML INJ IVP PRN ×3 (04:30→23:25)
[2016-07-29] MEDS: NS 1,000 ML IV SCH (04:31)
[2016-07-29 05:05] LABS: INR 1.14 (0.83-1.16); PROTIME(PATIENT) 14.5 SEC (12.0-15.0)
[2016-07-29 05:23] LABS: ANION GAP 8 mEq/L (8-16); CALCIUM 8.9 mg/dL (8.5-10.4); CARBON DIOXIDE 20 mEq/l (22-31); CHLORIDE 110 mEq/L (97-110); CREATININE 1.1 mg/dL (0.6-1.0); GLOMERULAR FILTRATION RATE 58; GLUCOSE 80 mg/dL (70-100); POTASSIUM 3.7 mEq/L (3.5-5.2); SODIUM 138 mEq/L (134-144)
[2016-07-29] MEDS: DIAZEPAM 5 MG TAB PO SCH ×2 (08:10→14:32)
[2016-07-29] MEDS: ALPRAZolam 1 MG TAB PO SCH ×2 (10:09→16:54)
[2016-07-29] MEDS: ENOXAPARIN 80 MG/0.8 ML SYR SC SCH ×2 (10:09→19:52)
[2016-07-29] MEDS: oxyCODONE IR 5 MG TAB PO PRN ×2 (11:40→19:56)
--- NOTE | 2016-07-29 14:25 | HOSPPROG ---
Hospitalist Progress Note Assessment/Plan: Patient is a 31-year-old female who presented to the emergency room with several days of acute left-sided abdominal pain. She was initially seen in the emergency room on July 25 for similar symptoms. At that time an abdominal CT and abdominal ultrasound were performed which were all unremarkable x for left sided ovarian cyst. * left-sided abdominal pain/ no c/o of this further doubtful it was the PE / it is on the right shirin Abdominal ultrasound shows no etiology *PE/pleuritic (pain was on left side) right sided PE Lovenox + Coumadin * chronic pain with continuous opiate use and dependency Home medications resumed by the previous provider on 07/15 got a 30 day supply of oxy and on 07/22 got a 30 day supply for Alpraz and diazepam * history of ovarian cyst *headache pain ? if caffeine withdrawal * acute kidney injury (hx of nephrectomy) creat is up slightly will recheck in a.m. 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 Objective: Vital Signs Temp Pulse Resp BP Pulse Ox 36.9 C 74 14 115/75 93 07/29/16 11:25 07/29/16 11:25 07/29/16 11:25 07/29/16 11:25 07/29/16 11:25 Laboratory Results 07/29/16 04:37 07/28/16 07/29/16 07/30/16 05:59 05:59 05:59 Intake Total 300 Balance 300 PT 14.5 SEC (12.0-15.0) 07/29/16 04:37 INR 1.14 (0.83-1.16) 07/29/16 04:37 - Physical Exam Constitutional: uncomfortable Eyes: PERRL Ears, Nose, Mouth, Throat: hearing normal Cardiovascular: regular rate and rhythym Respiratory: no respiratory distress Gastrointestinal: normoactive bowel sounds Skin: warm Musculoskeletal: full muscle strength Neurologic: AAOx3 Psychiatric: interacting appropriately ICD10 Worksheet Patient Problems: Problems Problem Status Onset Abdominal pain Acute Vomiting Acute
[2016-07-29] MEDS: ACETAMINOPHEN 325 MG TAB PO PRN (14:32)
[2016-07-29] MEDS: WARFARIN SODIUM 5 MG TAB PO SCH (16:55)
[2016-07-29] MEDS: METOCLOPRAMIDE 10 MG/2 ML VIAL IVP PRN (17:00)
[2016-07-29 19:39] VITALS: O2SAT 94
[2016-07-29] MEDS: hydrOXYzine HCL 25 MG TAB PO SCH (19:54)
[2016-07-29] MEDS: ESCITALOPRAM OXALATE 10 MG TAB PO SCH (19:56)
[2016-07-29] MEDS: PROPRANOLOL HCL 10 MG TAB PO SCH (19:57)
[2016-07-29] MEDS: diphenhydrAMINE 25 MG CAP PO PRN (23:25)
[2016-07-30 05:15] LABS: INR 1.13 (0.83-1.16); PROTIME(PATIENT) 14.4 SEC (12.0-15.0)
[2016-07-30] MEDS: PROMETHAZINE HCL 25 MG/ML INJ IVP PRN (05:42)
[2016-07-30 05:55] LABS: ANION GAP 9 mEq/L (8-16); CALCIUM 9.5 mg/dL (8.5-10.4); CARBON DIOXIDE 22 mEq/l (22-31); CHLORIDE 108 mEq/L (97-110); CREATININE 1.1 mg/dL (0.6-1.0); GLOMERULAR FILTRATION RATE 58; GLUCOSE 92 mg/dL (70-100); SODIUM 139 mEq/L (134-144)
[2016-07-30] MEDS: DIAZEPAM 5 MG TAB PO SCH (07:29)
[2016-07-30] MEDS: oxyCODONE IR 5 MG TAB PO PRN (07:29)
[2016-07-30 07:32] VITALS: BP 126/75; PULSE 54; RESP 14; TEMP 98
[2016-07-30] MEDS: ENOXAPARIN 80 MG/0.8 ML SYR SC SCH (07:35)
[2016-07-30] MEDS: METOCLOPRAMIDE 10 MG/2 ML VIAL IVP PRN (07:35)
--- NOTE | 2016-07-30 08:33 | HOSPPROG ---
Hospitalist Progress Note Assessment/Plan: Patient is a 31-year-old female who presented to the emergency room with several days of acute left-sided abdominal pain. She was initially seen in the emergency room on July 25 for similar symptoms. At that time an abdominal CT and abdominal ultrasound were performed which were all unremarkable x for left sided ovarian cyst. * left-sided abdominal pain/ no c/o of this further doubtful it was the PE / it is on the right shirin Abdominal ultrasound shows no etiology *PE/pleuritic (pain was on left side) right sided PE Lovenox + Coumadin INR is subtherapeutic * chronic pain with continuous opiate use and dependency Home medications resumed by the previous provider on 07/15 got a 30 day supply of oxy and on 07/22 got a 30 day supply for Alpraz and diazepam * history of ovarian cyst *headache pain ? 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 Objective: Vital Signs Temp Pulse Resp BP Pulse Ox 36.6 C 54 L 14 126/75 H 94 07/30/16 07:31 07/30/16 07:31 07/30/16 07:31 07/30/16 07:31 07/30/16 07:31 Laboratory Results 07/30/16 04:47 07/29/16 07/30/16 07/31/16 05:59 05:59 05:59 Intake Total 2920 Balance 2920 PT 14.4 SEC (12.0-15.0) 07/30/16 04:47 INR 1.13 (0.83-1.16) 07/30/16 04:47 - Physical Exam Constitutional: no apparent distress, appears nourished Eyes: PERRL Ears, Nose, Mouth, Throat: hearing normal Respiratory: no respiratory distress Skin: warm, normal color Musculoskeletal: full muscle strength Neurologic: AAOx3 Psychiatric: interacting appropriately ICD10 Worksheet Patient Problems: Problems Problem Status Onset Abdominal pain Acute Vomiting Acute
[2016-07-30] MEDS: ALPRAZolam 1 MG TAB PO SCH (10:09)
--- NOTE | 2016-07-30 14:31 | GDS ---
[f rep st] DISCHARGE SUMMARY DISCHARGE DIAGNOSES: 1. Pulmonary emboli, right-sided. 2. Left-sided abdominal pain. 3. Chronic pain with continuous opiate use and dependency. 4. History of ovarian cyst. 5. Headache pain. 6. Acute kidney injury with a history of a nephrectomy. 7. Anxiety, posttraumatic stress disorder. 8. Nausea and vomiting. BRIEF HISTORY: The patient is a 31-year-old female, who presented to the emergency room with severa l days of acute left-sided abdominal pain. She was initially seen in the emergency room on July 25 for similar symptoms. At that time, a CT of the abdomen was performed, and abdominal ultrasound was performed which were all unremarkable except for left ovarian cyst. She presented again with left lower quadrant pain, but the pain she described was more pleuritic in nature. A D-dimer was checked which was elevated. She had a CT scan of her chest which noted she had right-sided pulmonary embol i. HOSPITAL COURSE: 1. Pulmonary emboli. CTA on 07/28 noted a small amount of pulmonary embolus in the right upper lob e and right lower lobe. She has been initiated on Coumadin therapy and Lovenox therapy. The [facility] staff has done teaching with her, and Pharmacy has done teaching with her in regard to Coumadin. 2. Left-sided abdominal pain. She has had no complaints further of this. An abdominal ultrasound shows no etiology. 3. Chronic pain with continuous opiate use and dependency. I really encouraged her to try to get o ther treatment for her pain to consider doing acupuncture or pool therapy. 4. History of ovarian cyst. Further follow up with her PCP. 5. Headache pain. None today. 6. Acute injury. Creatinine is still slightly elevated at 1.1. Will have her follow up with her dick bonilla closely. 7. Anxiety, posttraumatic stress disorder. She has been calm and cooperative throughout her stay. 8. Nausea and vomiting. None further. PENDING LABORATORIES AND TESTS: None. CONDITION AT DISCHARGE: Stable. Blood pressure is 126/75, O2 sats on room air 94%, respiratory rat e is 14, pulse is 54, temperature is 36.6 Celsius. MEDICATIONS AT DISCHARGE: Please see the EMR. New medications include Lovenox and Coumadin. DISCHARGE INSTRUCTIONS: 1. I have already spoken to her primary care provider's office. They will be monitoring closely he r INR as well as her kidney function. 2. Encouraged her to get other treatments for chronic pain. 3. To not take ibuprofen in the setting of having only 1 kidney. Greater than 30 minutes discharging and coordinating her care. /[id number]/MODL
== END 2016-07-30 10:29 | disposition home or self-care (01) | DRG 176 ==
LOC: EDUNIT# → F3N 18:37 → OBSVTOIN 07-28 12:12
PROVIDERS: ADMIT Internal Medicine; ATTEND Internal Medicine
DX: I26.99 Other pulmonary embolism without acute cor pulmonale (principal); N17.9 Acute kidney failure, unspecified; G89.29 Other chronic pain; F11.20 Opioid dependence, uncomplicated; Z90.5 Acquired absence of kidney; F41.9 Anxiety disorder, unspecified; F43.10 Post-traumatic stress disorder, unspecified
CPT/HCPCS: 96374; G0378; J1170; J1200; J1650; J2550; J2765; Q9967

== ENCOUNTER 2016-08-09 18:59 | Emergency (ER) | payer MEDICAID ==
--- NOTE | 2016-08-09 19:18 | CPEKG ---
Heart Rate: 79 RR Interval: 759 QRSD Interval: 92 QT Interval: 392 QTC Interval: 450 QRS [place]: 32 T Wave [place]: 34 EKG Severity - ABNORMAL ECG - EKG Impression: Sinus rhythm no acute ischemic changes Electronically Signed By: Jesse Gomez 09-Aug-2016 19:36:33
--- NOTE | 2016-08-09 19:49 | EDPHY ---
H & P Stated Complaint: recent dx with PE, noted bloody stool today, seen at pcp due to cp/bloody s Time Seen by Provider: 08/09/16 19:34 HPI/ROS: CHIEF COMPLAINT: Abnormal labs and chest pain HISTORY OF PRESENT ILLNESS: The patient is a 31-year-old female with a history of a PE that developed after hospitalization for an ovarian cyst. She had been treated with Coumadin but had difficulty controlling her INR level. She was recently switched to Xarelto and bridged with Lovenox. She is currently only on Lovenox. She states that the it yesterday she had an INR of 11. The when she went to get her blood redrawn at her primary care physician Dr. Grayson Paniagua in [place], she told them she had chest pain and they got an EKG. This was about 9 hours ago. She reports that the EKG was abnormal and the doctor's office called an ambulance that took her to [facility]. The EKG was lost. She was seen at [facility] and had a repeat EKG and lab work done and was told that they were normal and was discharged home. After getting home she called her primary care physician who recommended she come to the emergency department here for 2nd opinion. She continues to have mild a right-sided chest pain. She denies shortness of breath. She denies diaphoresis. REVIEW OF SYSTEMS: Constitutional: denies: chills, fever, recent illness, recent injury EENTM: denies: blurred vision, double vision, nose congestion Respiratory: denies: cough, shortness of breath Cardiac: See HPI denies: irregular heart rate, lightheadedness, palpitations Gastrointestinal/Abdominal: denies: abdominal pain, diarrhea, nausea, vomiting, blood streaked stools Genitourinary: denies: dysuria, frequency, hematuria, pain Musculoskeletal: denies: joint pain, muscle pain Skin: denies: lesions, rash, jaundice, bruising Neurological: denies: headache, numbness, paresthesia, tingling, dizziness, weakness Hematologic/Lymphatic: denies: blood clots, easy bleeding, easy bruising Immunologic/allergic: denies: HIV/AIDS, transplant EXAM: GENERAL: Well-appearing, well-nourished and in no acute distress. HEAD: Atraumatic, normocephalic. EYES: Pupils equal round and reactive to light, extraocular movements intact, sclera anicteric, conjunctiva are normal. ENT: TMs normal, nares patent, oropharynx clear without exudates. Moist mucous membranes. NECK: Normal range of motion, supple without lymphadenopathy or JVD. LUNGS: Breath sounds clear to auscultation bilaterally and equal. No wheezes rales or rhonchi. HEART: Regular rate and rhythm without murmurs, rubs or gallops. ABDOMEN: Soft, nontender, normoactive bowel sounds. No guarding, no rebound. No masses appreciated. BACK: No CVA tenderness, no spinal tenderness, step-offs or deformities EXTREMITIES: Normal range of motion, no pitting or edema. No clubbing or cyanosis. NEUROLOGICAL: Cranial nerves II through XII grossly intact. Normal speech, normal gait. 5/5 strength, normal movement in all extremities, normal sensation PSYCH: Normal mood, normal affect. SKIN: Warm, dry, normal turgor, no visible rashes or lesions. Source: Patient Exam Limitations: No limitations - Medical/Surgical History Hx Asthma: No Hx Chronic Respiratory Disease: No Hx Diabetes: No Hx Cardiac Disease: No Hx Renal Disease: Yes Hx Cirrhosis: No Hx Alcoholism: No Hx HIV/AIDS: No Hx Splenectomy or Spleen Trauma: No Other PMH: nephrectomy, ovarian cysts, ptsd, anxiety, hysterectomy, PE, depression, chronic abd pain, tonsillectomy, appendectomy, cholecystecomy - Family History Significant Family History: No pertinent family hx - Social History Smoking Status: Never smoked Alcohol Use: Sober Drug Use: None Constitutional: Initial Vital Signs Temperature (C) 36.9 C 08/09/16 19:04 Heart Rate 86 08/09/16 19:04 Respiratory Rate 16 08/09/16 19:04 Blood Pressure 118/87 H 08/09/16 19:04 O2 Sat (%) 97 08/09/16 19:04 O2 Delivery Mode Room Air Allergies/Adverse Reactions: azithromycin Allergy (Intermediate, Verified 08/09/16 19:10) Rash morphine Allergy (Intermediate, Verified 08/09/16 19:10) Other-Enter Comments ondansetron Allergy (Intermediate, Verified 08/09/16 19:10) Other-Enter Comments Home Medications: Medication Instructions Recorded Propranolol HCl [Inderal 10mg (*)] 10 mg PO HS 07/25/16 hydrOXYzine HCL [hydrOXYzine HCL 50 mg PO HS 07/25/16 (RX)] oxyCODONE IR [Oxycodone Ir (*)] 10 mg PO Q8 PRN 07/25/16 ALPRAZolam [Xanax 1 MG (*)] 1 mg PO BID@10,17 07/27/16 Diazepam [Valium 10 MG (*)] 10 mg PO BID@07,14 07/27/16 Escitalopram Oxalate [Lexapro] 20 mg PO HS 07/27/16 tiZANidine HCL [Zanaflex] 8 mg PO HS 07/27/16 traZODone [traZODone 150MG (*)] 300 mg PO HS 07/27/16 Acetaminophen [Tylenol 325mg (*)] 650 mg PO Q4HRS PRN #0 tab 07/30/16 Enoxaparin [Lovenox 80 MG (*)] 80 mg SC BID #10 syr 07/30/16 Warfarin Sodium [Coumadin 5MG (*)] 7.5 mg PO DAILY AT 4PM #30 tab 07/30/16 Medical Decision Making - Diagnostics EKG Interpretation: An EKG obtained and was read and documented in trace view. Please see trace view for full reading and report. Normal sinus rhythm, no acute ischemic changes or signs of right heart strain. Imaging Results: Imaging Impressions Chest X-Ray 08/09/16 19:46 Impression: Normal chest x-ray. Imaging: Discussed imaging studies w/ on call Radiologist ED Course/Re-evaluation: 7:50 p.m. I discussed the case with Ronnie on for Dr. Cuevas's office. She states that the EKG in the office is very old an unreliable. She is unsure about abnormal lab results. She states that according to the medical records they are suspicious the patient has [place]. they recommended a repeat EKG and then follow up with Dr. Paniagua on Friday. I will repeat the patient's lab work to verify her labs are okay take in the setting of Xarelto . Also a troponin after greater than 8 hours of pain should be reassuring. 9:40 p.m. we discussed the lab results. The patient is reassured. She is currently asymptomatic. I urged her to continue taking Xarelto up she understands and agrees with this plan. We discussed indications for returning. Differential Diagnosis: Partial list of the Differential diagnosis considered include but were not limited to; PE, acute coronary disease, anxiety, and although unlikely based on the history and physical exam, I also considered pneumonia, peptic ulcer disease, dissection. I discussed these differential diagnoses and the plan with the patient as well as the usual and expected course. The patient understands that the diagnosis is provisional and that in medicine we are not always correct and that further workup is often warranted. Usual and customary warnings were given. All of the patient's questions were answered. The patient was instructed to return to the emergency department should the symptoms at all worsen or return, otherwise to followup with the physician as we discussed. - Data Points Laboratory Results: Laboratory Results 08/09/16 19:55 08/09/16 19:55 08/09/16 08/09/16 08/09/16 19:55 19:55 19:55 WBC 5.99 10^3/uL 10^3/uL (3.80-9.50) RBC 4.81 10^6/uL 10^6/uL (4.18-5.33) Hgb 14.2 g/dL g/dL (12.6-16.3) Hct 41.3 % % (38.0-47.0) MCV 85.9 fL fL (81.5-99.8) MCH 29.5 pg pg (27.9-34.1) MCHC 34.4 g/dL g/dL (32.4-36.7) RDW 12.0 % % (11.5-15.2) Plt Count 293 10^3/uL 10^3/uL (150-400) MPV 9.5 fL fL (8.7-11.7) Neut % (Auto) 50.2 % % (39.3-74.2) Lymph % (Auto) 40.4 % % (15.0-45.0) [place] % (Auto) 7.2 % % (4.5-13.0) Eos % (Auto) 1.2 % % (0.6-7.6) Baso % (Auto) 0.8 % % (0.3-1.7) Nucleat RBC Rel Count 0.0 % % (0.0-0.2) Absolute Neuts (auto) 3.01 10^3/uL 10^3/uL (1.70-6.50) Absolute Lymphs (auto) 2.42 10^3/uL 10^3/uL (1.00-3.00) Absolute Monos (auto) 0.43 10^3/uL 10^3/uL (0.30-0.80) Absolute Eos (auto) 0.07 10^3/uL 10^3/uL (0.03-0.40) Absolute Basos (auto) 0.05 10^3/uL 10^3/uL (0.02-0.10) Absolute Nucleated RBC 0.00 10^3/uL 10^3/uL (0-0.01) Immature Gran % 0.2 % % (0.0-1.1) Immature Gran # 0.01 10^3/uL 10^3/uL (0.00-0.10) PT 27.1 SEC H SEC (12.0-15.0) INR 2.48 H (0.83-1.16) APTT 45.0 SEC H SEC (23.0-38.0) Sodium 137 mEq/L mEq/L (134-144) Potassium 3.8 mEq/L mEq/L (3.5-5.2) Chloride 103 mEq/L mEq/L (97-110) Carbon Dioxide 21 mEq/l L mEq/l (22-31) Anion Gap 13 mEq/L mEq/L (8-16) BUN 11 mg/dL mg/dL (7-23) Creatinine 1.0 mg/dL mg/dL (0.6-1.0) Estimated GFR > 60 Glucose 92 mg/dL mg/dL (70-100) Calcium 9.7 mg/dL mg/dL (8.5-10.4) Troponin I < 0.012 ng/mL ng/mL (0-0.034) Departure - Departure Disposition: Home, Routine, Self-Care Clinical Impression: Chest pain Qualifiers: Chest pain type: unspecified Qualified Code(s): R07.9 - Chest pain, unspecified Pulmonary embolism Qualifiers: Pulmonary embolism type: other Chronicity: unspecified Acute cor pulmonale presence: without acute cor pulmonale Qualified Code(s): I26.99 - Other pulmonary embolism without acute cor pulmonale Condition: Fair Instructions: Chest Pain (ED), Deep Venous Thrombosis (ED) Referrals: Minh Paniagua DO [Primary Care Provider] - As per Instructions
[2016-08-09 20:08] LABS: % IMMATURE GRANULYOCYTES 0.2 % (0.0-1.1); ABSOLUTE IMMATURE GRANULOCYTES 0.01 10^3/uL (0.00-0.10); ADD DIFF? NO; ADD MORPH? NO; ADD SCAN? NO; ATYPICAL LYMPHOCYTE FLAG 0 (0-99); FRAGMENT RBC FLAG 0 (0-99); HEMATOCRIT 41.3 % (38.0-47.0); HEMOGLOBIN 14.2 g/dL (12.6-16.3); LEFT SHIFT FLG 0 (0-99); LIPEMIA HEMOLYSIS FLAG 90 (0-99); MEAN CELL HEMOGLOBIN 29.5 pg (27.9-34.1); MEAN CELL HEMOGLOBIN CONCENTR. 34.4 g/dL (32.4-36.7); MEAN CELL VOLUME 85.9 fL (81.5-99.8); MEAN PLATELET VOLUME 9.5 fL (8.7-11.7); PLATELET CLUMPS FLAG 0 (0-99); PLATELET COUNT 293 10^3/uL (150-400); RED BLOOD CELL COUNT 4.81 10^6/uL (4.18-5.33)
[2016-08-09 20:23] LABS: ANION GAP 13 mEq/L (8-16); CALCIUM 9.7 mg/dL (8.5-10.4); CARBON DIOXIDE 21 mEq/l (22-31); CHLORIDE 103 mEq/L (97-110); GLOMERULAR FILTRATION RATE > 60; GLUCOSE 92 mg/dL (70-100); POTASSIUM 3.8 mEq/L (3.5-5.2); SODIUM 137 mEq/L (134-144)
[2016-08-09 20:24] LABS: INR 2.48 (0.83-1.16); PROTIME(PATIENT) 27.1 SEC (12.0-15.0)
[2016-08-09 21:08] LABS: TROPONIN I < 0.012 ng/mL (0-0.034)
[2016-08-09 21:37] VITALS: BP 110/73
[2016-08-09 21:55] VITALS: PULSE 77; RESP 17; TEMP 97.7; O2SAT 95
== END 2016-08-09 21:53 | disposition home or self-care (01) ==
DX: I26.99 Other pulmonary embolism without acute cor pulmonale (principal); Z79.01 Long term (current) use of anticoagulants

== ENCOUNTER 2016-09-02 11:24 | Day surgery (SDC) | payer MEDICAID ==
[2016-09-02] MEDS ORDERED: LR 1,000 ML IV ONE (11:58)
[2016-09-02] MEDS ORDERED: MIDAZOLAM 2 MG/2 ML VIAL IVP ONE (12:17)
--- NOTE | 2016-09-02 12:19 | PDANEPAE ---
ANE History of Present Illness abdominal pain ANE Past Medical History - Cardiovascular History Hx Hypertension: No Hx Arrhythmias: No Hx Chest Pain: No Hx Coronary Artery / Peripheral Vascular Disease: No Hx CHF / Valvular Disease: No Hx Palpitations: No - Pulmonary History Hx COPD: No Hx Asthma/Reactive Airway Disease: No Hx Recent Upper Respiratory Infection: No Hx Oxygen in Use at Home: No Hx Sleep Apnea: No Sleep Apnea Screening Result - Last Documented: Negative Pulmonary History Comment: current PE diagnosed 07/28/16 on coumadin and lovenox - Neurologic History Hx Cerebrovascular Accident: No Hx Seizures: No Hx Dementia: No Neurologic History Comment: recent episode of "fainting and hitting head, new concussion" - Endocrine History Hx Diabetes: No - Renal History Hx Renal Disorders: Yes Renal History Comment: hx of nephrectomy after acute injury. hx of kidney stones - Liver History Hx Hepatic Disorders: No - Neurological & Psychiatric Hx Hx Neurological and Psychiatric Disorders: Yes Neurological / Psychiatric History Comment: ptsd. anxiety - Cancer History Hx Cancer: No - Congenital Disorder History Hx Congenital Disorders: No - GI History Hx Gastrointestinal Disorders: No - Other Health History Other Health History: hx of ovarian cysts. chronic pain. hospitalized 07/28- - Chronic Pain History Chronic Pain: Yes (chronic pain- generalized) - Surgical History Prior Surgeries: nephrectomy. oophorectomy. hysterectomy. nano. tonsillectomy ANE Review of Systems - Exercise capacity METS (RN): 4 METS ANE Patient History - Allergies Allergies/Adverse Reactions: azithromycin Allergy (Intermediate, Verified 08/27/16 15:31) Rash morphine Allergy (Intermediate, Verified 08/27/16 15:31) Other-Enter Comments ondansetron Allergy (Intermediate, Verified 08/27/16 15:31) Other-Enter Comments - Home Medications Home Medications: Propranolol HCl [Inderal 10mg (*)] 07/25/16 [Last Taken 08/31/16 21:00] hydrOXYzine HCL [hydrOXYzine HCL (RX)] 07/25/16 [Last Taken 09/01/16 21:00] oxyCODONE IR [Oxycodone Ir (*)] 07/25/16 [Last Taken 09/02/16 03:00] ALPRAZolam [Xanax 1 MG (*)] 07/27/16 [Last Taken 08/31/16 21:00] Diazepam [Valium 10 MG (*)] 07/27/16 [Last Taken 09/01/16 08:00] Escitalopram Oxalate [Lexapro] 07/27/16 [Last Taken 08/31/16 21:00] tiZANidine HCL [Zanaflex] 07/27/16 [Last Taken 08/31/16 21:00] traZODone [traZODone 150MG (*)] 07/27/16 [Last Taken 08/31/16 21:00] Acetaminophen [Tylenol 325mg (*)] 08/27/16 [Last Taken 08/31/16] Enoxaparin [Lovenox 80 MG (*)] 08/27/16 [Last Taken 08/31/16 21:00] Warfarin Sodium [Coumadin 5MG (*)] 08/27/16 [Last Taken 2 Weeks Ago] - NPO status NPO Since - Liquids (Date): 09/02/16 NPO Since - Liquids (Time): 00:01 NPO Since - Solids (Date): 09/01/16 NPO Since - Solids (Time): 08:00 - Smoking Hx Smoking Status: Never smoked - Family Anes Hx Family Hx Anesthesia Complications: none ANE Labs/Vital Signs - Vital Signs Blood Pressure: 108/70 Heart Rate: 70 Respiratory Rate: 16 O2 Sat (%): 95 Height: 162.56 cm Weight: 77.11 kg ANE Physical Exam - Airway Neck exam: FROM Mallampati Score: Class 3 Mouth exam: normal dental/mouth exam, small mouth opening - Pulmonary Pulmonary: no respiratory distress - Cardiovascular Cardiovascular: regular rate and rhythym - ASA Status ASA Status: III ANE Anesthesia Plan Anesthesia Plan: MAC
[2016-09-02 12:26] LABS: INR 0.97 (0.83-1.16); PROTIME(PATIENT) 12.8 SEC (12.0-15.0)
[2016-09-02] MEDS ORDERED: PROPOFOL 200 MG/20 ML VIAL ONE ×2 (12:39)
[2016-09-02] MEDS ORDERED: PROPOFOL/EMULSION 500 MG/50 ML BOTTLE IV ONE (12:39)
--- NOTE | 2016-09-02 12:53 | PDGENHP ---
History & Physical Chief Complaint: diarrhea, nausea, vomiting History of Present Illness: 31 year old female presents with c/o of diarrhea, nause, vomiting and BRBPR Pertinent Past, Social, Family History: SoHX; + alcohol. FaMHx: NO crc. + sprue. PMHx: PE Relevant Physical Exam: HEENT: anicteric. CV: RRR +s1s2. Lungs: CTAB No w/r/ r. Abd: soft, Nt, +BS Cardiorespiratory Assessment: ASA 3
[2016-09-02] MEDS ORDERED: NALOXONE HCL 0.4 MG/ML INJ IVP PRN (13:09)
--- NOTE | 2016-09-02 13:40 | POSTANESTH ---
Post Anesthetic Evaluation Cardiovascular Status: Normal, Stable Respiratory Status: Normal, Stable Level of Consciousness/Mental Status: Can Participate in Eval Pain Control: Adequate, Prn Tx Ordered Nausea/Vomiting Control: Adequate, Prn Tx Ordered Complications Possibly Related to Anesthesia: None Noted
--- NOTE | 2016-09-02 13:41 | POSTOPPROG ---
Post Op Note Date of Operation: 09/02/16 Surgeon: Rod Mao Anesthesia: IV Sedation Pre-op Diagnosis: nausea, vomiting, diarrhea Post-op Diagnosis: gastritis, c.s sprue Indication: diarrhea, nausea, vomiting Procedure: egd with bxm colonoscopy with bx Findings: gastritis, c.s Inf/Abcess present in the surg proc area at time of surgery?: No Specimen(s): gastritis c. sprue random colon bx
[2016-09-02 13:43] VITALS: PULSE 72
[2016-09-02] MEDS ORDERED: PROMETHAZINE HCL 25 MG/ML INJ ONE ×2 (13:44→15:20)
[2016-09-02] MEDS: PROMETHAZINE HCL 25 MG/ML INJ IVP PRN ×2 (13:49→15:22)
[2016-09-02] MEDS ORDERED: fentaNYL 100 MCG/2 ML INJ ONE ×2 (14:00→15:16)
[2016-09-02] MEDS: fentaNYL 100 MCG/2 ML INJ IVP PRN ×3 (14:01→15:26)
[2016-09-02 14:46] VITALS: BP 106/77; RESP 14; O2SAT 94
[2016-09-02 17:03] VITALS: TEMP 97.7
--- NOTE | 2016-09-02 18:09 | GPN ---
[f rep st] PROCEDURE NOTE DATE OF PROCEDURE: 09/02/2016 PROCEDURE: Esophagogastroduodenoscopy with biopsy. INDICATION: The patient is a 31-year-old female with complaints of nausea, vomiting, diarrhea as well as upper abdominal pain. She presents for further evaluation. CONSENT: Risks, benefits, and alternatives of the procedure were discussed in great detail with the patient. Risks of infection, bleeding, perforation, and sedation were discussed. All questions answered and informed consent was obtained. MEDICATIONS: Propofol. Please see Anesthesiology record for details. ESTIMATED BLOOD LOSS: Insignificant. ESOPHAGOGASTRODUODENOSCOPY EXAMINATION: The Olympus upper endoscope was inserted into the mouth and advanced to the esophagus. The proximal, mid, and distal esophagus was normal in appearance. The stomach was entered and closely examined, including retroflexed views of angularis, cardia and fundus. She was noted to have a moderate-sized hiatal hernia. The mucosa in the antrum and the body of the stomach was erythematous in a patchy distribution. Biopsies were taken. The duodenal bulb and second portion of duodenum were normal in appearance. Biopsies were taken to rule out celiac sprue. IMPRESSION: 1. Hiatal hernia. 2. Gastritis status post biopsy. 3. Biopsy taken to rule out celiac sprue. 4. No obvious cause of symptoms seen. RECOMMENDATIONS: 1. Await biopsy results. 2. Proceed with colonoscopy. 3. Start a trial of PPI therapy. 4. Office follow up in 4-6 weeks. 5. More recommendations on colonoscopy report. /[id number]/MODL MTDD
--- NOTE | 2016-09-02 18:14 | GPN ---
[f rep st] PROCEDURE NOTE DATE OF PROCEDURE: 09/02/2016 PROCEDURE: Colonoscopy with biopsy. INDICATION: The patient is a 31-year-old female, who presents with complaints of abdominal pain, diarrhea, as well as blood in her stools. She presents for further evaluation. CONSENT: Risks, benefits, and alternatives of the procedure were discussed in great detail with the patient. Risks of infection, bleeding, perforation, and sedation were discussed. All questions answered. Informed consent was obtained. MEDICATIONS: Propofol. Please see Anesthesia record for details. ESTIMATED BLOOD LOSS: Insignificant. QUALITY OF PREP: Suboptimal. COLONOSCOPIC EVALUATION: A rectal exam was done and internal hemorrhoids were appreciated. The Olympus adult colonoscope was inserted in the rectum and advanced to cecum, where the ileocecal valve and appendiceal orifice were seen. The terminal ileum was intubated and was normal in appearance.. The quality of prep was suboptimal with a large amount of thick liquid stool seen throughout the colon. This was aggressively flushed and suctioned. However, the scope got clogged multiple times, requiring back flushes. In certain areas, polyps greater than 1 cm/small masses could easily be missed. Random biopsies were taken throughout the colon. IMPRESSION: 1. Inadequate prep. 2. Normal terminal ilium. 3. Random biopsies taken throughout the colon. RECOMMENDATIONS: 1. Follow up on biopsy results. 2. Dicyclomine 20 mg b.i.d. 3. Consider repeat colonoscopy if concerned about colon cancer or continued blood in the stools. 4. No straining during bowel movements. 5. Follow up in office in 4-6 weeks. /[id number]/MODL MTDD
== END 2016-09-02 16:38 | disposition home or self-care (01) ==
LOC: FSGY 11:24
PROVIDERS: ATTEND Internal Medicine Gastroenterology
DX: R10.9 Unspecified abdominal pain (principal); R11.2 Nausea with vomiting, unspecified; R19.7 Diarrhea, unspecified; K92.1 Melena; K64.8 Other hemorrhoids; K44.9 Diaphragmatic hernia without obstruction or gangrene; F41.9 Anxiety disorder, unspecified; F43.10 Post-traumatic stress disorder, unspecified; Z86.711 Personal history of pulmonary embolism; Z87.442 Personal history of urinary calculi; Z79.01 Long term (current) use of anticoagulants; Z90.5 Acquired absence of kidney; Z90.710 Acquired absence of both cervix and uterus
CPT/HCPCS: J2250; J2550; J2704; J3010

== ENCOUNTER 2017-08-08 22:52 | Emergency (ER) | payer OTHER, MEDICAID ==
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
[2017-08-08] MEDS ORDERED: NS 1,000 ML IV ONE (23:22)
[2017-08-08 23:29] LABS: PLATELET COUNT 321 10^3/uL (150-400)
[2017-08-08 23:40] LABS: INR 1.09 (0.83-1.16); PROTIME(PATIENT) 14.3 SEC (12.0-15.0)
[2017-08-08] MEDS ORDERED: IOPAMIDOL (ISOVUE-300) 100 ML BTL ONE (23:55)
[2017-08-09 00:47] VITALS: BP 130/92
== END 2017-08-09 01:29 | disposition home or self-care (01) ==
LOC: EDUNIT#
DX: S09.90XA Unspecified injury of head, initial encounter (principal); S79.922A Unspecified injury of left thigh, initial encounter; V48.5XXA Car driver injured in noncollision transport accident in traffic accident, initial encounter; Y92.410 Unspecified street and highway as the place of occurrence of the external cause; Y99.8 Other external cause status; Y93.89 Activity, other specified
CPT/HCPCS: 82435-PO; 82565-PO; 82947-PO; 84132-PO; 84295-PO; 84520-PO; 85014-PO; G0480; Q9967